=== PATIENT | male | born 1950 | race Caucasian/White ===

== ENCOUNTER 2022-11-21 07:24 | Day surgery (SDC) | payer MEDICARE, OTHER ==
--- NOTE | 2022-11-13 14:40 | HP ---
DATE OF SURGERY: 11/21/2022 HISTORY OF PRESENT ILLNESS: The patient is a 72-year-old male presents for endoscopy. The last colonoscopy was in 2019 and he had polyps. He reports having frequent bowel movements and not having much come out. He does have some diarrhea at times. He denies abdominal pain or cramping. He did have some fried food that did upset him. There is no rectal bleeding. He reports history of a hiatal hernia. He is also on omeprazole. He is off that and he has some bad epigastric pain. PAST MEDICAL HISTORY: Hypertension, hyperlipidemia, benign prostatic hypertrophy, gastroesophageal reflux disease. PAST SURGICAL HISTORY: Sinus surgery. Cardiac cath. Hernia repair. Cataract. Shoulder, ankle and wrist surgery. ALLERGIES: NKDA. MEDICATIONS: Omeprazole, aspirin, dutasteride, Pramipexole, tamsulosin, atorvastatin, losartan/hydrochlorothiazide, Breztri. FAMILY HISTORY: Heart disease. SOCIAL HISTORY: Occasional alcohol, no smoking. REVIEW OF SYSTEMS: CONSTITUTIONAL: Denies fever or chills. CHEST: Denies shortness of breath. CVS: Denies chest pain. ABDOMEN: Reports epigastric pain. PHYSICAL EXAMINATION: GENERAL: No acute distress. CHEST: Nonlabored. No shortness of breath. CVS: Regular rate and rhythm. ABDOMEN: Soft. IMPRESSION: Nausea, reflux, hiatal hernia, history of polyps and fecal urgency. PLAN: EGD and colonoscopy with Dr. Marito Martinez. As dictated by Aelsha Welsh NP.
[2022-11-21] MEDS ORDERED: Lactated Ringers 1,000 ML IV SCH (07:30)
[2022-11-21] MEDS ORDERED: Lactated Ringers 1,000 ML IV ONE (07:36)
[2022-11-21 07:52] VITALS: RESP 16
[2022-11-21] MEDS ORDERED: Versed 2 MG/2 ML Injection ONE (10:33)
[2022-11-21] MEDS ORDERED: DIPRIVAN 200 MG/20 ML IV ONE ×2 (10:33→10:49)
[2022-11-21] MEDS ORDERED: GlucaGen 1 MG ONE (10:50)
[2022-11-21 11:28] VITALS: TEMP 97.8; O2SAT 92
[2022-11-21 11:41] VITALS: BP 118/71; PULSE 50
--- NOTE | 2022-11-21 11:58 | OP ---
SURGERY DATE/TIME: 11/21/2022 1035 PREOPERATIVE DIAGNOSIS: Reflux, nausea, known hiatal hernia, history of polyps, some fecal urgency and diarrhea. POSTOPERATIVE DIAGNOSES: 1) Small 1 inch hiatal hernia. 2) Grade 2 gastroesophageal reflux disease. 3) Chronic gastritis. 4) Moderate internal hemorrhoids. PROCEDURES: 1) EGD with cold biopsy x1. 2) Colonoscopy complete to cecum. SURGEON: Marito Martinez M.D. ANESTHESIA: MAC. COMPLICATIONS: None. CONDITION: Stable. INDICATION: As above. DESCRIPTION OF PROCEDURE: The patient is taken to endoscopy. Left lateral decubitus position. Scope introduced. Of interest she had a crooked arytenoid on the right but his cords were normal. Larynx and pharynx in this area were normal. Scope introduced. Grade 2 esophagitis, at the gastroesophageal junction a 1 inch hiatal hernia. Fundus, body and antrum looked chronic and worn out, very thin mucosa. [employer] biopsy of the antrum. Diagnosis of chronic gastritis clinically. Pylorus normal. Duodenal bulb normal. Second portion normal. Scope looped upon itself. Small hiatal hernia. Anal digital examination satisfactory tone. Scope advanced over to the cecum. Base of the cecum, ileocecal valve, appendiceal orifice was normal. Ascending, hepatic, transverse, splenic, descending, sigmoid, rectum, anus moderate internal hemorrhoids. The patient tolerated the procedure satisfactory. We will scope him one last time in five years before 82. We will send him a reminder in five years. He had disproportionate upper symptoms that were not overwhelmingly explained by the EGD. We are considering getting a gallbladder ultrasound as an outpatient.
== END 2022-11-21 11:51 | disposition home or self-care (01) ==
LOC: SDC 07:24
PROVIDERS: ATTEND Surgery
DX: K29.70 Gastritis, unspecified, without bleeding (principal); K21.9 Gastro-esophageal reflux disease without esophagitis; R11.0 Nausea; K44.9 Diaphragmatic hernia without obstruction or gangrene; Z09 Encounter for follow-up examination after completed treatment for conditions other than malignant neoplasm; Z86.010 Personal history of colon polyps; R19.7 Diarrhea, unspecified; R15.2 Fecal urgency; K64.8 Other hemorrhoids
CPT/HCPCS: 87045; 87046; J1610; J2250; J2704